=== PATIENT | female | born 1980 | race Caucasian/White ===

== ENCOUNTER 2020-01-12 00:44 | Day surgery (SDC) | payer OTHER, SELFPAY ==
--- NOTE | 2019-12-21 15:06 | PM.IMHP ---
H&P: HPI History of Present Illness Chief complaint: Abnormal PAP/ Uterine Polyp/ Irregular Bleeding Narrative: Consuelo Schulz is a 39 year old female 3 para 3 who is admitted for hysteroscopy dilatation curettage polypectomy. Patient complained of menorrhagia. She underwent ultrasound in the office which showed a large fibroid uterus and some irregular endometrium. There were at least 2 small masses noted consistent with fibroids. The EMC is prominent with a tiny cystic area and also suggesting some vascular flow risks and benefits were reviewed. She received the [employer] handout entitled hysteroscopy and dilatation and curettage respectively. She asked to proceed Review of Systems Review of Systems: All systems reviewed & are unremarkable except as noted in HPI and below Meds Home Medications and Allergies Allergies Allergy/AdvReac Type Severity Reaction Status Date / Time NA Allergy Uncoded 12/26/08 12:18 Exam Const: General: no acute distress Eyes: General: appearance normal, both eyes and all related structures Neck: Neck: supple and no JVD Thyroid: thyroid normal Resp: Effort & Inspection: normal respiratory effort Auscultation: clear to auscultation bilaterally Cardio: Rate: regular rate Rhythm: regular rhythm GI: Inspection: non-distended GI Palp: Yes Soft to palpation, No Tenderness to palpation present (GI) and No Guarding due to palpation present (GI) Auscultation: normal bowel sounds : General: Yes bladder normal to palpation External Female Exam: normal external appearance Speculum Exam - Vagina: normal vaginal discharge and No vaginal bleeding Speculum Exam - Cervix: nontender Bimanual exam- vagina & uterus: bladder normal to palpation and No Cervical tenderness present OB/external & speculum: No vaginal bleeding Skin: General skin exam: no rashes or lesions noted Extrem: General: normal to inspection and no edema Psych: Mental Status: mental status grossly normal Affect: normal affect Assessment and Plan Additional Plan impression: Fibroid uterus with suspected uterine polyp Plan: Hysteroscopy, dilatation curettage, probable polypectomy
--- NOTE | 2020-01-08 13:09 | PM.IMHP ---
H&P: HPI History of Present Illness Chief complaint: Abnormal PAP/ Uterine Polyp/ Irregular Bleeding Narrative: Consuelo Schulz is a 39 year old female T3 P3 who is admitted for hysteroscopy dilatation curettage and polypectomy. She has had heavy bleeding. She underwent ultrasound which showed no fibroids and a prominent cystic area inside endometrial canal and risks and benefits of hysteroscopy and dilatation curettage reviewed the scans aspiration bleeding transfusion infection perforation injury to bowel, bladder, ureters or other internal organs with need for open laparotomy and repair reviewed. She received the [employer] handout entitled hysteroscopy as well as dilatation curettage respectively. She had all questions answered. She asked to proceed Review of Systems Review of Systems: All systems reviewed & are unremarkable except as noted in HPI and below Meds Home Medications and Allergies Allergies Allergy/AdvReac Type Severity Reaction Status Date / Time NA Allergy Uncoded 12/26/08 12:18 Exam Const: General: no acute distress Eyes: General: appearance normal, both eyes and all related structures Neck: Neck: supple and no JVD Thyroid: thyroid normal Resp: Effort & Inspection: normal respiratory effort Auscultation: clear to auscultation bilaterally Cardio: Rate: regular rate Rhythm: regular rhythm GI: Inspection: non-distended GI Palp: Yes Soft to palpation, No Tenderness to palpation present (GI) and No Guarding due to palpation present (GI) Auscultation: normal bowel sounds : General: Yes bladder normal to palpation External Female Exam: normal external appearance Speculum Exam - Vagina: normal vaginal discharge and No vaginal bleeding Speculum Exam - Cervix: nontender Bimanual exam- vagina & uterus: bladder normal to palpation and No Cervical tenderness present OB/external & speculum: No vaginal bleeding Skin: General skin exam: no rashes or lesions noted Extrem: General: normal to inspection and no edema Psych: Mental Status: mental status grossly normal Affect: normal affect Assessment and Plan Additional Plan impression: Bleeding within the endometrium Plan: Hysteroscopy dilatation curettage
[2020-01-10 09:47] VITALS: BMI 24.5
--- NOTE | 2020-01-11 16:35 | WPDANESEPP ---
Anes - Eval Pre Procedure Procedure: Operation Date: 01/12/20 07:30 Proposed Procedures p Hysteroscopy, Dilation and Curettage With Polypectomy - Phill Breaux MD Date/Time: 01/11/20 16:35 Pre Op Diagnosis: Abnormal PAP/ Uterine Polyp/ Irregular Bleeding Patient Data Age: 39 Gender: F Height: 5 ft 10 in Weight: 77.77 kg Allergies Allergy/AdvReac Type Severity Reaction Status Date / Time No Known Allergies Allergy Verified 01/10/20 09:52 Home Medications Medication Instructions Recorded Confirmed Type No Home Medications 01/10/20 01/10/20 History Patient hx anesthesia problems: none Family hx anesthesia problems: none PMFSH Past Medical History Medical History (Updated 01/11/20 @ 16:37 by Gilbert Brown CRNA) Abnormal uterine bleeding (AUB) Anxiety Bronchitis Surgical History Surgical History (Updated 01/11/20 @ 16:36 by Gilbert Brown CRNA) H/O tubal ligation Exam Day of Procedure 01/11/20 16:35
[2020-01-12] MEDS: LACTATED RINGERS 1,000 ML 30 ML IV CONT (06:30)
[2020-01-12 06:38] LABS: Hematocrit 41.2 % (37.0-47.0); Hemoglobin 13.9 g/dL (12.0-15.0)
--- NOTE | 2020-01-12 06:38 | WPDHPUPDATE1 ---
History and Physical Update Update Date/Time: 01/12/20 06:38 History and Physical has been reviewed, including an updated exam of the patient. There are NO changes in the patient's condition. Risks, benefits, and alternatives have been discussed and questions answered. Patient agrees to proceed with procedure.
[2020-01-12 06:39] VITALS: BP 111/57; PULSE 83; RESP 15; TEMP 36.7; O2SAT 100
--- NOTE | 2020-01-12 06:52 | P.PNAN_ITS ---
Anes - Initial Pre Proc Eval Procedure: Operation Date: 01/12/20 07:30 Proposed Procedures p Hysteroscopy, Dilation and Curettage With Polypectomy - Phill Breaux MD Date/Time: 01/12/20 06:52 Surgeon: Phill Breaux MD Pre Op Diagnosis: Abnormal PAP/ Uterine Polyp/ Irregular Bleeding Patient Data Age: 39 Gender: F Height: 1.78 m Weight: 81 kg Last Vital Signs Temp 36.7 C 01/12/20 06:39 Pulse 83 01/12/20 06:39 Resp 15 01/12/20 06:39 BP 111/57 L 01/12/20 06:39 Pulse Ox 100 01/12/20 06:39 Allergies Allergy/AdvReac Type Severity Reaction Status Date / Time No Known Allergies Allergy Verified 01/10/20 09:52 Home Medications Medication Instructions Recorded Confirmed Type hydrocodone-acetaminophen [Craig] 1 tablet PO Q4H PRN #14 tablet 01/12/20 Rx Laboratory Tests 01/12/20 06:11 Hgb 13.9 g/dL g/dL (12.0-15.0) Hct 41.2 % % (37.0-47.0) Patient hx anesthesia problems: none Family hx anesthesia problems: none [facility] Past Medical History Medical History (Updated 01/11/20 @ 16:37 by Gilbert Brown CRNA) Abnormal uterine bleeding (AUB) Anxiety Bronchitis Surgical History Surgical History (Updated 01/11/20 @ 16:36 by Gilbert Brown CRNA) H/O tubal ligation Anes - Eval Final PreProcedure Day of Procedure 01/12/20 06:52 Patient weight: overweight Heart: regular rate and rhythm Lungs: clear to auscultation and normal air movement Airway: Mallampati scale class II Neurological: alert and oriented Last oral intake: >/= 8 hours ASA classification: II Emergent: no Anesthetic plan: proceed Anesthesia type and monitoring: general GIVS and LMA Informed Consent: The patient's anesthetic plan and its attendant risks and benefits were discussed with the patient/family/POA. Questions were solicited and answers provided to the satisfaction of the patient/family/POA.
[2020-01-12 07:01] VITALS: BP 111/57; PULSE 83; RESP 15; TEMP 36.7; O2SAT 100
[2020-01-12] MEDS: KETOROLAC 30 MG/ML VIAL (*BKC) IM (07:44)
--- NOTE | 2020-01-12 07:47 | PM.PROC ---
Procedure Note - Detailed Date of procedure: 01/12/20 Pre-op diagnosis: Abnormal PAP/ Uterine Polyp/ Irregular Bleeding Surgeon: Phill Breaux MD Postop diagnosis postmenopausal bleeding Procedure: Hysteroscopy/dilatation and curettage EBL: 5cc Anesthesia: IV sedation and local Findings: Retroverted uterus 11cm in depth thick endometrial tissue and clots. No polyp was seen Complications: None Procedure description: Patient was prepped and draped in the normal sterile fashion placed in the dorsal lithotomy position. Under excellent IV sedation weighted speculum placed in posterior fornix of vagina. Anterior lip of the cervix grasped with a single-tooth tenaculum. 2.5cc of 1% xylocaine anesthesia placed at 2, 4, 8, 10:00 a.m. of the cervix. Uterus sounded to 10cm and was noted be retroverted serial dilatation with fragmented dilators performed. This was followed by passage of the 5mm visualizing hysteroscope using normal saline as visualizing medium. Thick endometrial tissue was seen with some clots but no evidence of polyp from as seen per the ultrasound. Uterus was scraped over the entire 360? until good grating sound was heard. The instruments removed. All sponge, needle, instrument counts were correct. There were no immediate complications
--- NOTE | 2020-01-12 07:53 | SUR.OPER ---
EBL:10cc
[2020-01-12 07:55] VITALS: BP 91/47; PULSE 70; RESP 10; O2SAT 99
[2020-01-12 08:25] VITALS: BP 104/67; PULSE 74; RESP 14; O2SAT 99
== END 2020-01-12 08:52 | disposition home or self-care (01) ==
PROVIDERS: PCP Family Medicine; Visit Provider Obstetrics & Gynecology
PROC: 0U5B8ZZ Destruction of Endometrium, Via Natural or Artificial Opening Endoscopic (ICD-10-PCS; CPT 58563; principal; 2020-01-12 07:30)
DX: N93.9 Abnormal uterine and vaginal bleeding, unspecified (principal)
CPT/HCPCS: 58558; 36415; 85014; 85018; 88305; A9270; J1885; J2001; J2250; J2405; J2704; J3010; J7030; J7120